=== PATIENT | male | born 1950 | race Caucasian/White ===

== ENCOUNTER 2018-07-20 06:12 | Emergency (ER) | payer MEDICARE ==
[~2018-07-20] VITALS: Ht 177.8 cm; Wt 91.5 kg
[2018-07-20] MEDS ORDERED: LISI-170 PO (06:40)
[2018-07-20] MEDS ORDERED: NAPR-856 PO (06:42)
[2018-07-20] MEDS ORDERED: CALC625T13 PO (06:42)
--- NOTE | 2018-07-20 07:42 | NUR ---
REC BS REPORT PT HAS BEEN TO AND RETURNED RROM XR AT THIS TIME PT REPORT STOOL PIOR TO GOING TO XR ERP AWARE
[2018-07-20] MEDS ORDERED: MAGNESIUM CITRATE 300ML ORAL SOL ONE (07:59)
[2018-07-20] MEDS ORDERED: MAGNESIUM CITRATE 300ML ORAL SOL PO ONE (08:00)
[2018-07-20 08:06] VITALS: BP 124/72
== END 2018-07-20 08:10 | disposition home or self-care (01) ==
LOC: ED 08:04
DX: K59.00 Constipation, unspecified (principal)
CPT/HCPCS: 74021; 99283